=== PATIENT | female | born 1995 | race Caucasian/White ===

== ENCOUNTER 2023-10-29 07:16 | Day surgery (SDC) | payer MEDICAID, SELFPAY ==
[2023-10-29] VITALS (21 sets, daily range): BP systolic 101–129; BP diastolic 52–83; PULSE 65–108; RESP 14–18; TEMP 35.8–36.9; O2SAT 94–100; BMI 27.4
[2023-10-29] MEDS: SCOPOLAMINE 1 MG/3 DAY PATCH 1 PATCH TRANSDERMA (07:53)
[2023-10-29 08:12] LABS: Hemoglobin* 15.9 gm/dL (12.0-16.0)
[2023-10-29 08:13] LABS: Ur HCG Qualitative* Negative (Negative)
[2023-10-29] MEDS: LACTATED RINGERS 1000 ML 1,000 ML 100 ML IV (08:15)
[2023-10-29] MEDS: SODIUM CHLORIDE 0.9 % (FLUSH) 10 ML SYRINGE IVF (08:17)
[2023-10-29 08:33] LABS: Creatinine* 0.9 mg/dL (0.5-1.5); Est. Creatinine Clearance* 78.36; Estimated Glomerular Filt Rate 90 ml/min
--- NOTE | 2023-10-29 08:49 | W.PM.H&PU ---
History & Physical Update History & Physical Update H&P Reviewed and patient assessed: No changes noted H&P Updates: Preoperative diagnosis: Gender dysphoria Planned procedures: Total laparoscopic hysterectomy with bilateral salpingectomy, cystoscopy Physical exam: General: No acute distress Psych: Alert and oriented x3, full affect HEENT: Normocephalic, atraumatic Labs: Hemoglobin 15.9 Creatinine 0.9 Urine test negative
[2023-10-29] MEDS: CEFAZOLIN 2 GM INJ IVP (08:51)
[2023-10-29] MEDS: BUPIVACAINE 0.25% 30 ML 10 ML INJECTION (09:41)
--- NOTE | 2023-10-29 09:56 | SUR.OPER ---
PATIENT QUESTIONS ANSWERED SATISFACTORILY PREOPERATIVELY .PATIENT BROUGHT TO OR #4 PER CART. Patient positioned supine on OR #4 bed for the intubation. Pt. then moved into the lithotomy position for the procedure. Perioperative team/Geraldo padded and tucked the arms at pt. side in a neutral, padded position. Final approval of positioning by surgeon.
[2023-10-29] MEDS: METHYLENE BLUE 1 % 10 ml 100 MG INJECTION (10:26)
--- NOTE | 2023-10-29 11:26 | W.PM.NB ---
Nerve Block Nerve Block Time Seen by Provider: 11:06 Date Seen: 10/29/23 Type of block requested by surgeon for post-operative analgesia: TAP Side: bilateral Time out performed: Yes Verification of patient name: Yes Verification of date of : Yes Site marking: site marked Name of person performing procedure: Jayesh Continuous monitoring Was continuous monitoring of O2 sat, B/P, color television console monitor, recorded every 15 minutes?: Yes Procedure Checklist: sterile prep, needles and gloves Ultrasound guided. Images saved: Yes Medications given in 5ml increments after negative aspiration: Marcaine %: 0.25 mL: 30 Needle gauge: 20 and Exparel mL: 10 Patient tolerated procedure well: Yes Additional comments: Needle noted between internal oblique and transversus abdominus. Local spread visualized Block Charges Block Charge (with Pro Fee): TAP Bilateral Use of Ultrasound Machine for Block: Yes- US Guidance/pain block
--- NOTE | 2023-10-29 11:26 | W.ANESCHARGE ---
Anesthesia Charges Start Date/Time Anesthesia Start Date: 10/29/23 Anesthesia Start Time: 08:51 Stop Date/Time Anesthesia Stop Date: 10/29/23 Anesthesia Stop Time: 11:39
--- NOTE | 2023-10-29 11:31 | W.PM.GYNPROC ---
Procedure Note Date of procedure: 10/29/23 Pre-op diagnosis: Gender dysphoria Post-op diagnosis: same Procedure: Total laparoscopic hysterectomy with bilateral salpingectomy, cystoscopy Anesthesia: GETA Complications: None Surgeon: Ami Amador MD Neuropathologist: Honey Barrientos Estimated blood loss (mL): 25 IV fluids (mL): 1,700 Urine Output (mL): 200 Pathology: specimen obtained, sent to pathology (uterus and bilateral tubes; specimen confirmed at time of post-op debrief) Condition: stable Disposition: floor Findings: 1. Upon pelvic exam under anesthesia, the cervix and vagina were small but otherwise normal in appearance. 2. Upon laparoscopy, survey of the upper abdomen revealed a normal appearance to the inferior edge of the liver, gallbladder and stomach. Bowels were grossly normal appearance, as was the appendix. Survey of the pelvis revealed normal appearance to the uterus. Bilateral tubes and ovaries were normal in appearance. The cul-de-sac and bladder reflection were normal in appearance. Procedure Description: PROCEDURE IN DETAIL: Patient was taken to the operating room with IV running. She received cefazolin in preoperative prophylaxis. She was positioned in dorsal lithotomy position with her legs fully supported in Yellofin stirrups. General anesthesia was administered. She was prepped and draped in the usual sterile fashion. Pelvic exam under anesthesia was performed for the above-noted findings. Speculum was inserted. Cervix visualized and grasped along its anterior lip with a single-tooth tenaculum. Cervix was dilated with Hegar dilators to accommodate the VCare uterine manipulator. A small-sized colpotomizer cup was selected. The tip of the uterine manipulator was inserted through the cervix into the uterine cavity and the balloon was inflated. The speculum was removed. The colpotomy cup was advanced, surrounding the cervix, and the proximal occluder was moved up along the shaft of the VCare and fixed in place. Hammond catheter was placed. Patient's legs were then placed in neutral position. Attention was turned to patient's abdomen. Infraumbilical area was infiltrated with a small amount of Marcaine. A 5 mm infraumbilical incision was made with a scalpel and carried down to the underlying layer of fascia with the hemostat. 5 mm camera was placed within the 5 mm Fios Kii trocar, and advanced under direct visualization through the anterior abdominal wall into the peritoneal cavity, while tenting up the anterior abdominal wall. The trocar was removed. The balloon was inflated, holding the port in place. Pneumoperitoneum was achieved. Survey of the abdomen and pelvis revealed the above-noted findings. Three additional port sites were created. The first was in the patient's left lower quadrant, just superomedial to the left ASIS. The second was a hand's breadth superior to and slightly medial to the first. The third was in the patient's right lower quadrant, just superomedial to the right ASIS. An 11 mm incision was made in the left lower quadrant, and a 5 mm incision was made at the other 2 sites, after assuring that large vessels were out of harm's way. A 10 mm Fios Kii port was inserted at the left lower quadrant site, and a 5 mm Fios Kii port at each of the other 2 sites, under direct visualization and without complication. The balloon on each of the four ports was inflated, holding each in place. Attention was first turned to the left fallopian tube, which was divided from the mesosalpinx, using the Thunderbeat bipolar cautery device, proceeding laterally to medially, and the tube was amputated at the left uterine cornua. This was removed through the port site and sent to pathology. This procedure was repeated on the patient's right side, and the right fallopian tube was also amputated at the cornua and removed from the patient's abdomen. This was also sent to pathology for further analysis. The left round ligament was cauterized and transected with the Thunderbeat device. The utero-ovarian ligament was cauterized and transected, and the remnants of the right broad ligament were cauterized and transected between these two structures. The bladder flap was created on the patient's left side, moving laterally to medially. The left uterine artery was cauterized and transected with the Thunderbeat device. Using the colpotomizer cup as a guide, the peritoneum and underlying stroma was dissected off the anticipated site of colpotomy over the posterior vaginal fornix. Attention was then turned to the right side of the uterus, where the right round ligament was cauterized and transected with the Thunderbeat device. The right utero-ovarian ligament was cauterized and transected, and the remnants of the right round ligament were cauterized and transected between these two structures. The bladder flap was created on the patient's right side, and dissection was carried laterally to medially, meeting the dissection where it had left off from the patient's right side. The right uterine artery was cauterized and transected with the Thunderbeat device. The bladder reflection was moved well below the colpotomizer cup anteriorly. The vaginal fornix was then entered along the left aspect of the cervix with monopolar cautery, using the colpotomizer cup as a guide. This device was moved along the circumference of the colpotomizer cup, until the uterus and cervix were freed from their attachments to the pelvis. The uterus was pulled into the patient's vagina, maintaining the pneumoperitoneum. Interrupted [id number] sutures were used to close the vaginal cuff. These were placed laparoscopically and tied intracorporeally. Ports were left in place but all instruments were removed and pneumoperitoneum was released. Patient's legs were placed back in lithotomy position. The uterus was removed from the vagina and was sent to pathology for further analysis. Speculum exam was performed, showing an intact cuff with no obvious active bleeding. There were shallow abrasions of the skin of the vaginal vestibule, related to the small vaginal caliber and traction on uterine manipulator during surgery. The patient's legs were noted to be fully extended bilaterally at this time. The legs were adjusted within the Yellofin stirrups and placed back in a flexed position bilaterally. The Hammond catheter was removed from the bladder, and the cystoscope was assembled with saline inflow, outflow, and light cord in place. The patient was given IV methylene blue prior to the cystoscopy. Cystoscope was advanced through the urethra into the bladder, and survey of the mucosa revealed a normal appearance. The bladder dome was intact. Bilateral ureteral jets were noted. Cystoscope was removed and Hammond catheter replaced. Patient's legs were again placed in neutral position. Insufflator was reattached to the port and pneumoperitoneum again achieved. Survey of the pelvis revealed hemostasis. The 11 mm Fios Kii port in the left lower quadrant was removed after balloon on the port was deflated. The Phi-Columba laparoscopic closure device was inserted through this port. With the help of this device, the fascia was closed with a single suture of 0-Vicryl. Procedure was deemed complete. The balloons of all remaining port sites were deflated, and all ports were removed after pneumoperitoneum was released. The skin of each port site was closed in a subcuticular fashion with 4 0 Monocryl. Surgical glue was applied above this. Patient tolerated procedure well and was taken to recovery area in stable condition.
--- NOTE | 2023-10-29 11:46 | W.ANESCHARGE ---
Anesthesia Charges Start Date/Time Anesthesia Start Date: 10/29/23 Anesthesia Start Time: 08:51 Stop Date/Time Anesthesia Stop Date: 10/29/23 Anesthesia Stop Time: 11:39
[2023-10-29] MEDS: LACTATED RINGERS 1000 ML 1,000 ML 125 ML IV ×2 (15:05→22:18)
--- NOTE | 2023-10-29 15:25 | PC.NURSE ---
End of Shift [id number] - Pt arrived from PACU at approximately 1215. Pt asleep on arrival, VSS, afebrile and tolerating RA. Lap sites x 4 open to air and CDI. Hammond catheter patent and draining. Family at bedside. Pt unable to verbalize pain, SOB, nausea due to sedation. Appears to be resting comfortably at end of shift.
[2023-10-29] MEDS: KETOROLAC 15 MG/ML inj IVP ×2 (17:06→23:22)
--- NOTE | 2023-10-29 22:42 | PC.NURSE ---
Shift [id number]- Patient denies need for additional pain medication beyond scheduled. Lap sites open to air, no drainage. He is up to chair this evening, tolerates well. Is eating and drinking without issue. Hammond in place, patent and draining.
[2023-10-30 02:55] VITALS: BP 112/67; PULSE 72; RESP 16; TEMP 36.6; O2SAT 98
[2023-10-30] MEDS: KETOROLAC 15 MG/ML inj IVP ×2 (05:29→11:19)
[2023-10-30 06:18] LABS: Hemoglobin* 14.1 gm/dL (12.0-16.0)
--- NOTE | 2023-10-30 06:25 | PC.NURSE ---
End of shift [id number]: Pt A&O, afebrile and VSS overnight. SBA with ambulation. Reports pain is very minimal and intermittent with certain movements or with coughing. Pt reports sleeping well in between cares. Scheduled IV Toradol given per MAR and no PRN?s were needed overnight. Hammond catheter draining clear, green urine with a total output of: 300 mL. LR infused @ 125 mL/hr overnight d/t low PO intake; SL @ 0540. Scopolamine patch remains behind patient?s right ear. 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 Hammond catheter removed @ 0540. Pt tolerated removal well and voided 300 mL instantly.
[2023-10-30] MEDS: OMEPRAZOLE 20 MG CAPSULE DR PO (06:34)
[2023-10-30 06:37] LABS: Creatinine* 0.9 mg/dL (0.5-1.5); Est. Creatinine Clearance* 78.36; Estimated Glomerular Filt Rate 90 ml/min
[2023-10-30 07:00] VITALS: PULSE 78; RESP 16
--- NOTE | 2023-10-30 08:01 | PM.GYNDS1 ---
DS: Providers Provider Time Seen by Provider: 07:20 Date Seen: 10/30/23 Primary care physician: Sultana Romero MD Attending Physician on discharge: Christa Jane MD TRANSMISSION MAINTENANCE SUPERVISOR-Discharge Summary Hospital Course Hospital Course Narrative: Patient is a 28 year old admitted on 10/29/2023 for postoperative care. Indication for surgery: Gender dysphoria Intraoperative findings were notable for normal anatomy, please see Dr. Amador's operative note for complete details. He had an uncomplicated surgery. Postoperative course has been uneventful. Vitals have been stable. He has remained afebrile. Today, on postoperative day 1, he reports the pain is well controlled and has been quite minimal. He is tolerating p.o. intake, no nausea/vomiting. He has been able to ambulate without difficulty. He is passing flatus. Hammond catheter has been removed, where he passed voiding trial. Minimal to no vaginal bleeding. Time Spent with Patient Time attestation: Total time spent providing and/or coordinating discharge services: Time spent: Less than 30 minutes TRANSMISSION MAINTENANCE SUPERVISOR - Exam Physical Exam: Vital signs: Temp Pulse Resp BP Pulse Ox O2 Del Method 97.8 F 72 16 112/67 98 Room Air 10/30/23 02:55 10/30/23 02:55 10/30/23 02:55 10/30/23 02:55 10/30/23 02:55 10/30/23 02:55 Narrative: General: No acute distress, seated upright in chair eating breakfast Psych: Alert and oriented x 3, full affect HEENT: Normocephalic, atraumatic Abdomen: Soft, minimal tenderness consistent with postop state, no rebound, or guarding. Incisions are well approximated, superficial surgical glue noted. No erythema or drainage noted. TRANSMISSION MAINTENANCE SUPERVISOR - DS: Data Data Completed and Pending Labs on day of discharge: Labs from last 24 hours 10/30/23 10/29/23 10/29/23 06:06 Unknown 08:04 Hgb 14.1 15.9 Creatinine 0.9 0.9 Estimated Creat Clear 78.36 78.36 Estimated GFR 90 90 Urine HCG, Qual Negative Blood Type A Positive Antibody Screen NEGATIVE Procedures Procedures: Procedures Operation Date: 10/29/23 09:00 Actual Procedure Side Surgeon p M/S - Total Laparoscopic Hysterectomy, Bilateral Salpingectomy, Cystoscopy Ami Amador MD Discharge Plan Discharge Disposition: Home, Self-Care Discharging Surgeon: Arina Jane Follow-Up Appointment: 2-[address] Amador Prescriptions: New oxycodone 5 mg Tablet 5 mg PO Q4H PRN (Reason: Moderate Pain) Qty: 15 0RF Continued omeprazole 20 mg capsule,delayed release(DR/EC) 20 mg PO QDAY fluoxetine 40 mg capsule 40 mg PO QDAY albuterol sulfate 90 mcg/actuation HFA aerosol inhaler 2 puff inhalation Q4-6H PRN (Reason: shortness of breath or wheezing) Qty: 8.5 0RF (DME) Monoject TB 1 mL 28 gauge x 1/2 syringe See Rx Instructions .ROUTE .MEDSUPPLY Qty: 100 0RF Rx Instructions: As directed trazodone 50 mg tablet 100 mg PO QPM PRN lisdexamfetamine [Vyvanse] 20 mg capsule 20 mg PO QAM testosterone cypionate 200 mg/mL oil 70 mg subcut QWEEK Qty: 1 0RF Rx Instructions: Dose correction from previous prescription peg-electrolyte soln [Nulytely Lemon[place]] 420 gram recon soln 240 ml PO Q10M Qty: 4000 0RF Rx Instructions: until fecal effluent is clear testosterone cypionate 200 mg/mL oil 70 mg subcut QWEEK Qty: 30 1RF Activity Level: Activity as Tolerated Discharge Diet: Regular Patient Instructions: Laparoscopic Hysterectomy (DC) Additional Instructions: Lifting restrictions: Please do not lift more than 15lbs for 4 weeks Sexual restriction: Pelvic rest for 6 weeks Pain control: Over the counter Motrin 600 mg by mouth every six hours on a full stomach for pain as needed Over the counter Acetaminophen 1000 mg by mouth every six hours on a full stomach for pain as needed Oxycodone 5mg every 4 hours as needed for breakthrough pain Please call with: - Increasing or severe abdominal pain - Fevers/chills - Inability to tolerate solid/liquids by mouth, recurrent nausea/vomiting - Incision redness/drainage - Signs or symptoms of a blood clot - calf pain, redness, swelling, chest pain or shortness of breath Forms: Work/School Release Follow-up: Sultana Romero MD [Primary Care Provider] - Discharge Orders: Discharge Order (Routine); Ordered 10/30/23 Ordered By: Arina Jane
[2023-10-30 08:07] VITALS: BP 112/59; PULSE 78; RESP 16; TEMP 36.7; O2SAT 97
[2023-10-30 11:17] VITALS: BP 110/55; PULSE 76; RESP 16; TEMP 36.6; O2SAT 97
--- NOTE | 2023-10-30 12:42 | PC.NURSE ---
Pt discharged to home at 12:40 with family transportation provided. Pt alert & oriented x 4 upon discharge with no c/o pain. He voided 400 mL urine before discharge and was eating and drinking well with no c/o nausea or vomiting.
== END 2023-10-30 12:40 | disposition home or self-care (01) ==
LOC: OR 07:18 → MEDSURG 07:20
PROVIDERS: PCP Family Medicine; Visit Provider Obstetrics & Gynecology
PROC: 0UT94ZZ Resection of Uterus, Percutaneous Endoscopic Approach (ICD-10-PCS; CPT 58571; principal; 2023-10-29 08:45)
DX: F64.0 Transsexualism (principal); F64.9 Gender identity disorder, unspecified; F32.9 Major depressive disorder, single episode, unspecified; F41.1 Generalized anxiety disorder; G89.18 Other acute postprocedural pain
CPT/HCPCS: 58571; 00840; 36415; 64488; 76942; 81025; 82565; 85018; 86850; 86900; 86901; 88307; A9270; C9290; J0330; J0665; J0690; J1100; J1200; J1630; J1885; J2405; J2704; J2710; J3010; J3475; J3490; J7120

== ENCOUNTER 2023-11-12 17:00 | Emergency (ER) | payer MEDICAID, SELFPAY ==
[2023-11-12 17:13] VITALS: BP 154/100; PULSE 78; RESP 16; TEMP 36.2; O2SAT 98; BMI 27.5
--- NOTE | 2023-11-12 19:10 | ED.GENADULT ---
HPI - General Adult General Chief complaint: Urogenital Problems, Female Stated complaint: bleeding post hysterectomy Time Seen by Provider: 11/12/23 18:58 History of Present Illness HPI narrative: This 28-year-old female transitioning to a male comes in reporting a gush of blood from a vaginal vault prior to arrival. He states that he feels normal and there is no ongoing bleeding. He had a hysterectomy 2 weeks ago and has been doing well since then. He does have a follow-up appointment next week. He arrives with normal vital signs. Related Data Home Medications Medication Instructions Recorded Confirmed fluoxetine 40 mg capsule 40 mg PO QDAY 11/23/22 10/29/23 omeprazole 20 mg capsule,delayed 20 mg PO QDAY 11/23/22 10/29/23 release lisdexamfetamine 20 mg capsule 20 mg PO QAM 08/24/23 10/29/23 (Vyvanse) trazodone 50 mg tablet 100 mg PO QPM PRN 08/24/23 10/29/23 Previous Rx's Medication Instructions Recorded albuterol sulfate 90 mcg/actuation 2 puff inhalation Q4-6H PRN 11/23/22 aerosol inhaler shortness of breath or wheezing #8.5 grams syringe with needle 1 mL 28 gauge #100 ea 01/12/23 x 1/2 (Monoject TB) testosterone cypionate 200 mg/mL 70 mg (0.35 mL) subcut QWEEK #1 mL 01/23/23 intramuscular oil peg-electrolyte solution 420 gram 240 ml PO Q10M #4,000 mL 09/08/23 oral solution (Nulytely [place]) testosterone cypionate 200 mg/mL 70 mg (0.35 mL) subcut QWEEK #30 mL 10/19/23 intramuscular oil oxycodone 5 mg tablet 5 mg PO Q4H PRN Moderate Pain #15 10/30/23 tabs Allergies Allergy/AdvReac Type Severity Reaction Status Date / Time No Known Drug Allergies Allergy Verified 11/12/23 17:16 Review of Systems Status of ROS: Reports: 10 or more systems reviewed and unremarkable except as noted in History and below Narrative: Constitutional: No fevers, no weight gain or loss. Eyes: No discharge. No vision changes. HENT: No congestion, no sore throat, no ear pain. Cardiovascular: No chest pain, no palpitations. Respiratory: No shortness of breath, no wheezes, no cough. Gastrointestinal: No abdominal pain, no vomiting, no diarrhea. Genitourinary: No dysuria . Musculoskeletal: Normal range of motion. Skin: No rashes, no pruritis. Neurological: No dizziness, weakness, sensory change, speech change. Endo/Heme/Allergies: No bruising or bleeding. No polydipsia. Pysch: no suicidality, no anxiety, no insomnia. All other systems reviewed and are negative. [facility] Medical History (Updated 11/12/23 @ 19:14 by Sean Liu MD) Osteoporosis (2001) ?M81.0 - Age-related osteoporosis without current pathological fracture (ICD-10) Major depressive disorder ?F32.9 - Major depressive disorder, single episode, unspecified (ICD-10) Hyperlipidemia ?E78.5 - Hyperlipidemia, unspecified (ICD-10) History of bone density study (01/11/21) ?Z92.89 - Personal history of other medical treatment (ICD-10) Generalized anxiety disorder ?F41.1 - Generalized anxiety disorder (ICD-10) Gastroesophageal reflux disease (2019) ?K21.9 - Gastro-esophageal reflux disease without esophagitis (ICD-10) [id number] transgender person ?Z78.9 - Other specified health status (ICD-10) Asthma ?J45.909 - Unspecified asthma, uncomplicated (ICD-10) Gender dysphoria ?F64.9 - Gender identity disorder, unspecified (ICD-10) Surgical History (Updated 10/30/23 @ 09:00 by Sultana Romero MD) Status post abdominal hysterectomy and salpingo-oophorectomy (~10/2023) History of esophagogastroduodenoscopy (EGD) (02/04/21) ?Z98.890 - Other specified postprocedural states (ICD-10) Status post bilateral mastectomy (2016) ?Z90.13 - Acquired absence of bilateral breasts and nipples (ICD-10) History of surgery on upper extremity (2007) ?Z98.890 - Other specified postprocedural states (ICD-10) Family History (Updated 01/16/23 @ 10:27 by Ami Amador MD) Aunt Ovarian cancer Grandfather High blood pressure High cholesterol Diabetes Mental illness in member of household Grandmother High blood pressure High cholesterol Diabetes Mental illness in member of household Mother Mental illness in member of household Alcohol dependence Pulmonary embolism Father Alcohol dependence DVT (deep venous thrombosis) Other Bleeding disorder Heart disease Social History (Updated 01/16/23 @ 10:29 by Ami Amador MD) Narrative: He lives in alone in [place]. 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 He has a high school education. He doesn't smoke. Rare EtOH. No regular exercise. Single. No children. What is your current living situation?: I presently have a place to live Problems where you live: no known problems In past 12 months, lack of transportation kept you from medical appts, meetings, work, or getting things needed for daily living: no In the past 12 mos, have been you worried that your food would run out before you had money to buy more?: never true In the past 12 mos, the food you bought just didn't last and you didn't have money to buy more?: never true Smoking Status: Never smoker Second hand tobacco smoke exposure: No How often do you have a drink containing alcohol: monthly or less AUDIT-C Alcohol total score: 1 Non-prescribed substance use: denies use How often does anyone, including family, friends and others, physically hurt you: never How often does anyone, including family, friends and others, insult or talk down to you: never How often does anyone, including family, friends and others, threaten you with harm: never How often does anyone, including family, friends and others, scream or curse at you: never Little interest or pleasure in doing things: several days Feeling down, depressed, or hopeless: more than half the days service: No Exam Narrative: Exam Narrative: Constitutional: Well-developed, well-nourished, no acute distress. HEENT: Normocephalic, atraumatic. Neck: Normal range of motion. Nontender. Supple. Heart: Regular. No murmurs. Normal rate. Intact distal pulses. Lungs: Clear to auscultation. No chest discomfort. No wheezes, rhonchi, or rales. Abdomen: Normal bowel sounds. Nontender. No rebound tenderness. Back: No midline tenderness. Normal range of motion. Extremities: Normal range of motion. No injury. Skin: Intact. No rash. Warm. No erythema or pallor. Neurologic: No altered sensation. No weakness. Alert and oriented. Psychiatric: No suicidality. No anxiety or depression. No insomnia. Nursing notes and vitals signs are reviewed. Const: Vital Signs, click to edit/add: Vital Signs - 24 hr 11/12/23 17:13 Temperature 97.1 F L Pulse Rate [Right Pulse Oximeter] 78 Respiratory Rate 16 Blood Pressure [Ri ght Upper Arm] 154/100 H Pulse Oximetry 98 Oxygen Delivery Me thod Room Air Course Vital Signs Vital signs: Initial Vital Signs Temperature 97.1 F L 11/12/23 17:13 Temperature Source Temporal Artery Scan 11/12/23 17:13 Pulse Rate 78 11/12/23 17:13 Pulse Rhythm Regular 11/12/23 17:13 Pulse Strength 3+ Normal 11/12/23 17:13 Respiratory Rate 16 11/12/23 17:13 Blood Pressure 154/100 H 11/12/23 17:13 Blood Pressure Mean 118 H 11/12/23 17:13 Blood Pressure Position Sitting 11/12/23 17:13 Pulse Oximetry 98 11/12/23 17:13 Oxygen Delivery Method Room Air 11/12/23 17:13 Vital Signs Temperature 97.1 F L 11/12/23 17:13 Pulse Rate 78 11/12/23 17:13 Respiratory Rate 16 11/12/23 17:13 Blood Pressure 154/100 H 11/12/23 17:13 Pulse Oximetry 98 11/12/23 17:13 Oxygen Delivery Method Room Air 11/12/23 17:13 Temperature 97.1 F L 11/12/23 17:13 Pulse Rate 78 11/12/23 17:13 Respiratory Rate 16 11/12/23 17:13 Blood Pressure 154/100 H 11/12/23 17:13 Pulse Oximetry 98 11/12/23 17:13 Oxygen Delivery Method Room Air 11/12/23 17:13 Medical Decision Making MDM Narrative Medical decision making narrative: This patient has been feeling quite well status post hysterectomy about 2 weeks ago. Today while in the shower there was a gush of blood that occurred but there was no pain or other symptoms at the time. Since then he has been feeling normal. I did discuss the role of checking labs and doing an ultrasound. I stated that this is most likely a postop hematoma that his body appropriately discharged. The patient is satisfied with this explanation and declines any further lab or imaging studies at this time. There is a follow-up appointment next week. The patient understands the need to return if symptoms are persistent Or worsening. Discharge Plan Discharge Clinical Impression: Postoperative vaginal bleeding Patient Disposition: Home, Self-Care Condition: Stable Additional Instructions: continue current plans. Follow up with MD as scheduled. Return if symptoms are recurrent or worsening. Prescriptions: No Action omeprazole 20 mg capsule,delayed release(DR/EC) 20 mg PO QDAY fluoxetine 40 mg capsule 40 mg PO QDAY albuterol sulfate 90 mcg/actuation HFA aerosol inhaler 2 puff inhalation Q4-6H PRN (Reason: shortness of breath or wheezing) Qty: 8.5 0RF (DME) Monoject TB 1 mL 28 gauge x 1/2 syringe See Rx Instructions .ROUTE .MEDSUPPLY Qty: 100 0RF Rx Instructions: As directed trazodone 50 mg tablet 100 mg PO QPM PRN lisdexamfetamine [Vyvanse] 20 mg capsule 20 mg PO QAM oxycodone 5 mg Tablet 5 mg PO Q4H PRN (Reason: Moderate Pain) Qty: 15 0RF testosterone cypionate 200 mg/mL oil 70 mg subcut QWEEK Qty: 1 0RF Rx Instructions: Dose correction from previous prescription peg-electrolyte soln [Nulytely Lemon[place]] 420 gram recon soln 240 ml PO Q10M Qty: 4000 0RF Rx Instructions: until fecal effluent is clear testosterone cypionate 200 mg/mL oil 70 mg subcut QWEEK Qty: 30 1RF Follow Up/Referrals: Sultana Romero MD [Primary Care Provider] - Stand Alone Forms: [facility] Info Instructions
== END 2023-11-12 19:26 | disposition home or self-care (01) ==
LOC: ED 19:23
PROVIDERS: Emergency Provider Emergency Medicine Emergency Medical Services; PCP Family Medicine
DX: N99.821 Postprocedural hemorrhage of a genitourinary system organ or structure following other procedure (principal)
CPT/HCPCS: 99282; 99283; 99284

== ENCOUNTER 2024-11-03 12:18 | Outpatient (CLI) | payer MEDICAID, SELFPAY | END 2024-11-03 12:19 | disposition home or self-care (01) | PROVIDERS: PCP Family Medicine; Visit Provider Obstetrics & Gynecology | DX: Z82.49 Family history of ischemic heart disease and other diseases of the circulatory system (principal) | CPT/HCPCS: 81240; 81241; 84403; 85300; 85303; 85306; 85610; 85730 ==